=== PATIENT | male | born 1930 | race Caucasian/White ===

== ENCOUNTER 2016-10-01 21:05 | Emergency (ER) | payer MEDICARE ==
--- NOTE | ~2016-10-01 | ER ---
PATIENT'S NAME: DAX ACOSTA [facility] AGE: 85 Y [address] ROOM: [place] [address] LOCATION: [facility] ADMIT DATE: 10/01/2016 ER/Outpatient Report DISCHARGE DATE: 10/01/2016 FAMILY PHYSICIAN: Ezekiel Montenegro MD ATTENDING PHYSICIAN: Patricia Herrera HISTORY OF PRESENT ILLNESS: This is an 85-year-old male who presents today with right forearm redness and tenderness. His family thinks it is from a fall approximately 3 days ago. The patient has baseline unsteady gait. His family says that his legs just give out a lot. They were worried because the swelling has gotten red and warm and the patient is complaining of more pain. No other injuries noted as per family. The patient had another fall tonight where he was wedged between a crib and a bed and the patient did not want to come into the ER, but the patient's family wanted him to get checked out. The patient himself refuses to answer any questions really and says he wants to go home. As per his family, this is his baseline mental status at this time. PAST MEDICAL HISTORY: Includes type 2 diabetes, history of bladder carcinoma with post ileal conduit, hypertension, CHF, AFib, chronic kidney disease, and rheumatic arthritis. PAST SURGICAL HISTORY: Includes appendectomy, hernia repair, excision of skin cancer, and cystoprostatectomy with ileal conduit urinary diversion. SOCIAL HISTORY: No smoking, drinking, or use any drugs. FAMILY HISTORY: Noncontributory. MEDICATIONS: Include: 1. Bupropion 300 mg p.o. daily. 2. Carvedilol 625 mg b.i.d. 3. Tylenol 1 g p.o. as needed. 4. Glimepiride 2 mg b.i.d. 5. Humibid LA 600 mg b.i.d. 6. Levemir 10 units subcu. 7. Prednisone 10 mg daily. 8. Protonix 4 mg daily. 9. Seroquel 25 mg daily. 10. Glucagon 1 mg as needed for hypoglycemia. PATIENT'S NAME: DAX ACOSTA [facility] AGE: 85 Y [address] ROOM: [place] [address] LOCATION: [facility] ADMIT DATE: 10/01/2016 ER/Outpatient Report DISCHARGE DATE: 10/01/2016 FAMILY PHYSICIAN: Ezekiel Montenegro MD ATTENDING PHYSICIAN: Patricia Herrera 11. Methotrexate 2.5 mg dose every 7 days. 12. Albuterol 2.5 mg nebulizer q.4 p.r.n. for shortness of breath. 13. Milk of magnesia p.r.n. constipation. 14. Mylanta 30 mL daily p.r.n. constipation. 15. Insulin sliding scale of NovoLog. REVIEW OF SYSTEMS: Reviewed by me and negative with the exception of those discussed in the HPI. PHYSICAL EXAMINATION: VITAL SIGNS: The patient is 5 feet, 6 inches, weighs 73.4 kilos. Blood pressure was 72/68, heart rate 89, respiratory rate 18, satting 97% on room air, and temp at this time is 36.5. GENERAL: The patient does not appear in any acute distress. He is not very cooperative to exam and he does not answer questions, but he is not altered. He is not actively vomiting or retching. No other complaints at this time. HEENT: His pupils are equal and reactive to light. He has some dried scrapes on his head, but they do not look new, basically, he has no hematoma on his head, he has no scalp tenderness, he has no C-spine tenderness. HEART: Heart rate sounds irregular at this time. LUNGS: His lungs sounds are clear though. MUSCULOSKELETAL: He has no chest wall tenderness and no abdominal tenderness. EXTREMITIES: He has full range of motion of the elbow, but he does have tenderness medial and lateral malleolus and he also has this 2-cm raised red, mildly warm area, just distal to where the elbow is on the forearm, tender on palpation, but there is no fluctuance in it, but mildly warm to touch. EMERGENCY ROOM COURSE: An x-ray was done on my read. I do not see a fracture at all. Discussed with them that I would treat for possible early cellulitis and did tavon a [place] around it. We started him on Keflex and he is to follow up in 2 days for wound check. IMPRESSION: Fall, early cellulitis of the forearm. MD DORIS MEADOWS/modl /[id number] d: 10/02/16 0500 t: 10/02/16 1822, OUTPATIENT REPORT
[~2016-10-01 21:05] MED LIST changes: -ALBUTEROL2.5 MG/31 INH; -AUGMENTIN 875-1 EACH PO; -DOCUSATE SODIU250 MG PO; -PREDNISONE50 MG PO; -PROTONIX40 MG PO; -QUETIAPINE FUMA25 MG; -SEROQUEL25 MG PO; -[UNRECOGNIZED DRUG - OTHER]
== END 2016-10-01 22:19 | disposition disaster alternative care site (69) ==
LOC: GACC 21:05
DX: L03.113 Cellulitis of right upper limb (principal); E11.22 Type 2 diabetes mellitus with diabetic chronic kidney disease; I13.0 Hypertensive heart and chronic kidney disease with heart failure and stage 1 through stage 4 chronic kidney disease, or unspecified chronic kidney disease; I50.9 Heart failure, unspecified; N18.9 Chronic kidney disease, unspecified; I48.91 Unspecified atrial fibrillation; M06.9 Rheumatoid arthritis, unspecified; Z79.899 Other long term (current) drug therapy; Z85.820 Personal history of malignant melanoma of skin; Z85.51 Personal history of malignant neoplasm of bladder; Z90.49 Acquired absence of other specified parts of digestive tract; Z98.890 Other specified postprocedural states; Z79.4 Long term (current) use of insulin

== ENCOUNTER → 2016-10-01 | Outpatient (CLI) | payer MEDICARE ==
[~2016-10-01] MED LIST: ALBUTEROL2.5 MG/31 INH; AMARYL4 MG PO; AUGMENTIN 875-1 EACH PO; COREG6.25 MG PO; DELTASONE5 MG PO; DOCUSATE SODIU250 MG PO; GLUCOPHAGE XR500 M1 PO; PREDNISONE50 MG PO; PROBIOTIC1 EAC1 PO; PROTONIX40 MG PO; QUETIAPINE FUMA25 MG; RHEUMATREX2.5 MG PO; SEROQUEL25 MG PO; WELLBUTRIN XL300 M2 PO; [UNRECOGNIZED DRUG - OTHER]
== END | disposition disaster alternative care site (69) ==
LOC: GAMB 20:44
DX: S59.911A Unspecified injury of right forearm, initial encounter (principal); M79.601 Pain in right arm; Z79.899 Other long term (current) drug therapy
CPT/HCPCS: A0425; A0429

== ENCOUNTER 2016-10-29 14:18 | Inpatient (IN) | payer MEDICARE ==
[~2016-10-29] VITALS: Ht 170.2 cm; Wt 73.5 kg
--- NOTE | ~2016-10-29 | HP ---
PATIENT'S NAME: DAX ACOSTA [facility] AGE: 85 Y [address] ROOM: [place] [address] LOCATION: [facility]ICU ADMIT DATE: 10/29/2016 History & Physical DISCHARGE DATE: FAMILY PHYSICIAN: PHYSICIAN, UNKNOWN ATTENDING PHYSICIAN: Elizabeth MONTENEGRO DATE OF SERVICE: CHIEF COMPLAINT: Septic shock. HISTORY OF PRESENT ILLNESS: The patient is an 85-year-old gentleman with past medical history of bladder cancer status post ileal conduit, hypertension, and rheumatoid arthritis, on methotrexate and chronic prednisone, who presents here with nausea, vomiting, and weakness. The patient has a history of dementia and most of the history is acquired from his . According to his , she reports that around 1:30 a.m. he has been experiencing several nonbloody nausea and vomiting, which continued until 6:30. His nausea and vomiting improved, but however was noted to be weak. reports that she also noticed him to be more confused than usual. The patient was also found down after he had a fall from his bed which led the EMS to be called in to bring the patient here for further evaluation. On initial evaluation, the patient was noted to be hypotensive and systolic blood pressure in the 70s. The patient was given IV fluids 30 mL per kg with some improvement. However, was still noted to be hypotensive. The patient was admitted to our hospital with the same sort of presentation in March 2016, was found to have community-acquired pneumonia with positive blood culture for Klebsiella bacteremia. PAST MEDICAL HISTORY: 1. Diabetes mellitus, type 2. 2. History of bladder cancer. 3. Hypertension. 4. Rheumatoid arthritis. 5. Dementia. PAST SURGICAL HISTORY: 1. Appendectomy. 2. Ileal conduit. 3. Prostatectomy. 4. Hernia repair. 5. Knee surgery. FAMILY HISTORY: Father had Alzheimer. Mother has diabetes mellitus, type 2. The patient is a PATIENT'S NAME: DAX ACOSTA [facility] AGE: 85 Y [address] ROOM: [place] [address] LOCATION: GICU ADMIT DATE: 10/29/2016 History & Physical DISCHARGE DATE: FAMILY PHYSICIAN: PHYSICIAN, UNKNOWN ATTENDING PHYSICIAN: Elizabeth MONTENEGRO former smoker and currently does not smoke. Does not drink and lives with his . They live together with their daughter. MEDICATIONS: Currently being reconciled. REVIEW OF SYSTEMS: Unable to fully evaluate due to patient's poor mentation. PHYSICAL EXAMINATION: VITAL SIGNS: Temperature 98.8, blood pressure 86/52, heart rate 97, and saturating 94% on room air with respiratory rate of 16. GENERAL APPEARANCE: The patient is currently lying on bed in no acute distress. HEENT: Head; normocephalic and atraumatic. Eyes; sclerae nonicteric. Oral cavity; dry oral mucosa. Nose; no nasal discharge. CHEST: Decreased breath sounds in lower lung kurtz bilaterally. HEART: Irregularly irregular. No murmurs, rubs, or gallops. ABDOMEN: Right upper quadrant tenderness. Old surgical scars noted on abdomen. Bowel sounds present. EXTREMITIES: Lower extremity, no edema. SKIN: Warm to touch. MUSCULOSKELETAL: Range of motion intact. Rheumatoid arthritis changes seen on his bilateral hands. 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 Motor and sensory grossly intact. He has poor strength in bilateral lower extremities and that is chronic. LABORATORY DATA: Lactate of 4.2. Sodium of 142, CO2 of 11, creatinine of 1.7, and blood glucose 282. White blood cell count of 12.7, platelets of 289,000, and a hemoglobin of 12.9. CT head, stable [id number]-[id number] senescent changes, no acute findings. Chest x-ray shows internal jugular catheter in place in good position with tip at the mid right atrium. Shows interstitial prominence of both lungs which is suspicious for pneumonitis in both lower lobes. ASSESSMENT AND PLAN: 1. Septic shock. Etiology most likely secondary to bacterial pneumonia. Chest x-ray showed bilateral pneumonitis. White blood cell count of 12.7, lactate of 4.2. The patient had central line placed in the emergency department. The patient has already received 30 mL per kg IV fluids of treatment. The patient currently hypotensive. We will start the patient on Levophed. We will await for blood culture and sputum PATIENT'S NAME: DAX ACOSTA [facility] AGE: 85 Y [address] ROOM: [place] [address] LOCATION: [facility] ADMIT DATE: 10/29/2016 History & Physical DISCHARGE DATE: FAMILY PHYSICIAN: PHYSICIAN, UNKNOWN ATTENDING PHYSICIAN: Elizabeth MONTENEGRO culture. To trend lactate until normalized. On empiric antibiotic of vancomycin and Zosyn. 2. Community-acquired pneumonia. See problem #1. 3. Right upper quadrant pain. The patient has a history of cholelithiasis. I suspect he might also harbor cholecystitis. We will acquire a CT of abdomen and pelvis without contrast to evaluate gallbladder. Also patient has significant history of kidney stones. UA is still pending. We will acquire CT abdomen. We will also evaluate for obstructive uropathy and pyelonephritis. 4. Acute kidney injury secondary to septic shock. To continue IV fluids and daily renal function panel. 5. Rheumatoid arthritis. We will hold methotrexate as this patient is immunocompromised. The patient is on daily prednisone. We will start the patient on stress dose steroids. 6. Hypertension. Holding medication. 7. Dementia, ongoing. 8. History of bladder cancer status post ileal conduit. Continue conduit's care. 9. Severe protein-calorie malnutrition. We will keep the patient n.p.o. for now due to nausea and vomiting. We will start the patient on a diet once stable. We will acquire dietitian consult. Greater than 30 minutes of critical care was spent on the patient's care. We will admit the patient to ICU for IV fluids, antibiotics, and pressor support. Code status on admission was DNR/DNI. However, the family wants everything in treatment for his septic shock. LAN MARIE MD AD/modl /[id number] D: [id number] T: [id number] HISTORY & PHYSICAL
--- NOTE | ~2016-10-29 | ER ---
PATIENT'S NAME: DAX ACOSTA [place] AGE: 85 Y [address] ROOM: [place] [address] LOCATION: [facility] ADMIT DATE: 10/29/2016 ER/Outpatient Report DISCHARGE DATE: FAMILY PHYSICIAN: Ezekiel Montenegro MD ATTENDING PHYSICIAN: Elizabeth WHITMORE Time of arrival: 1418 hours. Time of evaluation: 1418 hours. CHIEF COMPLAINT: Low blood pressure. HISTORY OF PRESENT ILLNESS: The patient is an 85-year-old male who presents to the emergency department today with a chief complaint of low blood pressure. The patient does report that it occurred just prior to arrival. He has had a fall and he has had ongoing balance issues. He does report a dry nonproductive cough. He reports some nausea and vomiting. The patient denies any chest pain. Does have some mild shortness of breath. He does report some subjective fevers. His did note that the patient was more confused than usual. He was found down after he had a fall from his bed. He was found at that time to have systolic blood pressures in the 70s. PAST MEDICAL HISTORY: Bladder cancer, atrial fibrillation, insulin-dependent diabetic, congestive heart failure, hypertension, rheumatoid arthritis, chronic kidney disease. PAST SURGICAL HISTORY: Ileal conduit, appendectomy, prostatectomy, hernia repair, skin cancer removal, knee surgery. SOCIAL HISTORY: The patient denies any tobacco, alcohol, or illicit drug use. He does have a history of former tobacco abuse. ALLERGIES: NO KNOWN DRUG ALLERGIES. MEDICATIONS: Please see list. PRIMARY CARE DOCTOR: Ezekiel Montenegro MD. REVIEW OF SYSTEMS: PATIENT'S NAME: DAX ACOSTA [place] AGE: 85 Y [address] ROOM: [address] [address] LOCATION: [facility] ADMIT DATE: 10/29/2016 ER/Outpatient Report DISCHARGE DATE: FAMILY PHYSICIAN: Ezekiel Montenegro MD ATTENDING PHYSICIAN: Elizabeth WHITMORE All systems are reviewed by myself and are negative with the exception of those discussed in HPI and past medical history. PHYSICAL EXAMINATION: VITAL SIGNS: Weight 71.9 kg, blood pressure 92/53, pulse 108, respiratory rate 19, temperature 98.8, oxygen saturation 96% on room air. GENERAL: The patient is an 85-year-old male, who appears older than stated age, in no acute distress. HEENT: Normocephalic, atraumatic. Pupils are equal, round, and reactive to light. Mucous membranes are dry. Nares are clear bilaterally. NECK: Supple. There is no nuchal rigidity. CARDIOVASCULAR: Irregularly irregular, tachycardic. LUNGS: Diminished at the bases with crackles noted. ABDOMEN: Soft, nontender, nondistended. Positive bowel sounds. MUSCULOSKELETAL: The patient has no bony tenderness to palpation noted. NEUROLOGICAL: He is alert, oriented to person, does know he is in the hospital, does not know the time. Equal parent partner strength bilaterally. He has poor strength in bilateral lower extremities. SKIN: Warm and dry. LABORATORY DATA AND X-RAYS: Labs and x-rays are obtained. An EKG is obtained, is interpreted by myself at 1425 hours, does show atrial fibrillation with a rate of 103, left axis deviation, right bundle-branch block with left anterior fascicular block. There is no ST elevation, ST depression. Nonspecific T-waves. QRS is 147. QTc is normal. Another repeat EKG is obtained at 1646 hours that is essentially unremarkable compared to previous. Previous EKGs are reviewed as well from March 19, 2016, no significant changes noted. A chest x-ray is obtained, does reveal pneumonitis in the right lower lung, questionable on the left. I have discussed this result with the radiologist. CBC: White blood cell count 12.7, otherwise normal, ANC is 11.3. Lactate 4.4. Coags are normal. CMP: Chloride 118, CO2 11, BUN 46, creatinine 1.7, glucose 282. LFTs are normal. Magnesium is 1.7. CK and CK-MB are normal. Troponin 0.054. Free T4 is normal. TSH is normal. ProBNP is 2507. Procalcitonin is 5.15. A CT scan of the brain is obtained. I have discussed the results with the radiologist. It shows atrophy with no acute process. IMPRESSION: 1. Septic shock with sepsis, time 1506 hours. 2. Bilateral pneumonia, community acquired. 3. History of bladder cancer with ileal conduit. 4. Acute kidney injury, likely secondary to septic shock. PATIENT'S NAME: DAX ACOSTA [place] AGE: 85 Y [address] ROOM: [id number] [place], [place] [address] LOCATION: [facility] ADMIT DATE: 10/29/2016 ER/Outpatient Report DISCHARGE DATE: FAMILY PHYSICIAN: Ezekiel Montenegro MD ATTENDING PHYSICIAN: Elizabeth WHITMORE 5. Elevated troponin, likely due to #1. 6. Critical care time 42 minutes. 7. Initial visit. EMERGENCY DEPARTMENT COURSE: The patient was brought back to the examination room, immediately seen upon arrival by myself. IV is established. Laboratory analysis and imaging are obtained as described above. The patient does appear to be in septic shock. His blood pressures with MAPs are less than 65. The patient is given 2500 mL of fluid IV bolus. The patient's weight is 71.9 kg. The patient's blood pressure did improve transiently, however, it did decrease again. Thus I did have a discussion with the patient and his about placement of a central line for both fluid management and the potential need for vasopressors. Risks and benefits are discussed. They do wish to proceed. Both verbal and written consents are obtained. The procedure was performed by myself. CONSENT: The procedure was explained to the patient and family and both verbal and written informed consent were obtained. The patient's right internal jugular was prepped and draped in the usual sterile fashion. Anesthesia 1% lidocaine without epinephrine was used for local infiltration technique. A triple-lumen central line was introduced over wire via the Seldinger technique and it was sutured into place. Good blood flow was noted. There was no evidence of pulsatile flow noted. Good blood flow was noted from all 3 ports. Blood loss was minimal. Chest x-ray was ordered to assess for pneumothorax and catheter placement. Complications none. 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 The patient is started on 4.5 g of Zosyn IV as well as 1250 mg of vancomycin IV. I did discuss the results of the testing with the patient as well as his who is at the bedside. The patient will obviously need admission to the hospital for further evaluation, treatment, and management. The patient and are agreeable. I have discussed the case with Dr. Whitmore, who is on-call for the Hospitalist Service. He has seen and evaluated the patient down here in the emergency department. Please see his dictation. The patient did require a cumulative critical care time of 42 minutes. This time did not include the time for the procedure of the central line placement. This time did include talking with family, talking with multiple consultants, ordering tests, reviewing tests, as well as close monitoring and multiple re- evaluations of the patient with septic shock and hypotension. The patient was in the emergency department for approximately 3-1/2 hours. DISPOSITION: PATIENT'S NAME: DAX ACOSTA [place] AGE: 85 Y [address] ROOM: [address] [address] LOCATION: [facility] ADMIT DATE: 10/29/2016 ER/Outpatient Report DISCHARGE DATE: FAMILY PHYSICIAN: Ezekiel Montenegro MD ATTENDING PHYSICIAN: Elizabeth WHITMORE The patient is admitted under the care of the Hospitalist Service in fair condition. DO MILANA CUELLAR/modl /[id number] d: 10/31/16 0803 t: 10/31/16 1613, OUTPATIENT REPORT
--- NOTE | ~2016-10-29 | DS ---
PATIENT'S NAME: DAX ACOSTA [facility] AGE: 85 Y [address] ROOM: [id number] [place], [place] [address] LOCATION: [facility] ADMIT DATE: 10/29/2016 Discharge Summary DISCHARGE DATE: 11/02/2016 FAMILY PHYSICIAN: Ezekiel Montenegro MD ATTENDING PHYSICIAN: Elizabeth MONTENEGRO PRINCIPAL DIAGNOSES: 1. Acute septic shock. 2. Bilateral pneumonia. 3. Acute kidney injury on chronic kidney disease. 4. Rheumatoid arthritis. 5. Type 2 diabetes mellitus. HOSPITAL COURSE: An 85-year-old gentleman with a past medical history of bladder cancer, status post ileal conduit, hypertension, rheumatoid arthritis, on methotrexate as well as chronic prednisone who presented with nausea, vomiting, and weakness. He also had delirium on top of his dementia. Initial evaluation in the emergency department including chest x-ray, CAT scan, as well as blood work did reveal bilateral pneumonia. He was found to be hypotensive and a central line was placed and he was transferred to the ICU for the pressor agents. He was initially started on broad-spectrum antibiotics including vancomycin, Zosyn, and Levaquin. He was found to have E. coli pneumonia based on the sputum cultures. His antibiotics were deescalated to Rocephin 1 g daily. He was given additional hydrocortisone as a stress dose as well. He recovered well during the course of the hospitalization. JOSH which was present on the admission secondary to septic shock also resolved towards the end of the hospitalization. He was found to have AFib with controlled ventricular rates. Previous medical records review showed that he had that in the past, but it was never brought to the family's attention. I discussed this case with the patient himself as well as the . They told me that they were never told that he had atrial fibrillation. I explained to them regarding there is 4% risk of stroke without any anticoagulation with AFib. The and the patient himself stated that he is 86 years old and does not want any blood thinners at this point and would like to defer this to Dr. Rader who is the primary care physician. DISCHARGE MEDICATIONS: New medications are: 1. Augmentin 875/125 p.o. b.i.d. 2. Prednisone 60 mg p.o. daily for 5 days and then the regular prednisone 10 mg p.o. daily. 3. Bupropion 300 mg p.o. everyday. 4. Carvedilol 6.25 mg p.o. twice daily. 5. Docusate 250 mg p.o. everyday. 6. Methotrexate 17.5 mg p.o. every 7 days. 7. Pantoprazole 40 mg p.o. twice daily. PATIENT'S NAME: DAX ACOSTA [facility] AGE: 85 Y [address] ROOM: [address] [address] LOCATION: GPCU ADMIT DATE: 10/29/2016 Discharge Summary DISCHARGE DATE: 11/02/2016 FAMILY PHYSICIAN: Ezekiel Montenegro MD ATTENDING PHYSICIAN: Elizabeth MONTENEGRO 8. Quetiapine 20 mg p.o. everyday. 9. Glimepiride 4 mg p.o. twice daily. 10. Albuterol 2.5 mg inhalation every 4 hours. 11. Lactobacillus 1 capsule p.o. everyday for 5 days. 12. Metformin 1000 mg p.o. twice daily. ACTIVITY: As tolerated. DIET: Low-sodium diet. FOLLOW UP: Follow up with primary care physician Dr. Montenegro in 1 week. was concerned that we should not be asking for too much physical therapy at this point and she would just like him to be more comfortable. We spent 35 minutes in discharge planning and coordinating care of this patient. I explained the pathogenesis of the pneumonia and what are the possibilities of getting E. coli pneumonia. I explained the possibility that he probably aspirated when he was vomiting. All other questions and concerns were addressed. MD SALBADOR QUEZADA/sean /[id number] d: 11/03/16 0236 t: 11/06/16 1323, DISCHARGE SUMMARY
[~2016-10-29 14:18] MED LIST changes: -ALBUTEROL2.5 MG/31 INH; -AUGMENTIN 875-1 EACH PO; -DOCUSATE SODIU250 MG PO; -PREDNISONE50 MG PO; -PROTONIX40 MG PO; -QUETIAPINE FUMA25 MG; -SEROQUEL25 MG PO; -[UNRECOGNIZED DRUG - OTHER]
[2016-10-29 15:11] LABS: BASOPHIL % 0.2 %; EOSINOPHIL % 0.1 %; HEMATOCRIT 39.1 % (33.0-50.0); HEMOGLOBIN 12.9 g/dL (11.0-16.0); IMMATURE GRANULOCYTE # 0.1 K/uL (0.0-0.3); IMMATURE GRANULOCYTE % 0.5 %; LYMPHOCYTE # 0.6 K/uL (0.8-4.0); LYMPHOCYTE % 4.9 %; MCH 33.2 pg (27.0-34.0); MCV 100.8 fl (83.0-98.0); MONOCYTE # 0.7 K/uL (0.0-1.0); MONOCYTE % 5.1 %; MPV 10.2 fl (9.4-12.4); NEUTROPHIL # (ANC) 11.3 K/uL (1.4-9.0); NEUTROPHIL % 89.2 %; NRBC % 0 /100WBC (0-0.00); PLATELET COUNT 289 K/uL (150-450); RDW-CV 15.9 % (11.9-14.6); WBC 12.7 K/uL (4.0-11.0)
[2016-10-29 15:16] LABS: RBC 3.88 M/uL (3.50-5.50)
[2016-10-29 15:20] LABS: INR - (THERAPEUTIC) 1.02 (0.92-1.07); PROTIME 10.7 SECONDS (9.8-11.4); PTT 24 SECONDS (25-32)
[2016-10-29 15:38] LABS: ALBUMIN 3.2 gm/dL (3.5-5.0); CALCIUM 9.7 mg/dL (8.5-10.5); CREATININE 1.7 mg/dL (0.6-1.3); MAGNESIUM 1.7 mg/dL (1.8-2.6); POTASSIUM 4.5 mMol/L (3.7-5.1); TOTAL BILIRUBIN 0.8 mg/dL (0.0-1.5); TOTAL PROTEIN 6.9 g/dL (6.0-8.4)
[2016-10-29 15:58] LABS: ANION GAP 20.5 (10.0-19.0)
[2016-10-29] MEDS ORDERED: QUETIAPINE FUMA25 MG (18:36)
[2016-10-29] MEDS ORDERED: PROTONIX40 MG PO (18:36)
[2016-10-29] MEDS ORDERED: DOCUSATE SODIU250 MG PO (18:37)
[2016-10-29] MEDS ORDERED: SEROQUEL25 MG PO (18:37)
[2016-10-29 18:54] LABS: PCO2 27 mmHg (35-45); PO2 97 mmHg (80-90)
[2016-10-29 22:22] LABS: BILIRUBIN URINE NEGATIVE (NEGATIVE); BLOOD URINE 50 /UL (NEGATIVE); COLOR URINE YELLOW (YELLOW); GLUCOSE URINE NEGATIVE (NEGATIVE); KETONE URINE 5 mg/dL (NEGATIVE); LEUKOCYTES URINE 500 /UL (NEGATIVE); NITRITE URINE NEGATIVE (NEGATIVE); PH URINE 6.5 (4.0-8.0); PROTEIN URINE 30 mg/dL (NEGATIVE); TURBIDITY URINE CLEAR (CLEAR); UROBILINOGEN URINE 1 mg/dL (NORMAL)
[2016-10-29 22:34] LABS: RBC URINE 0-2 #/HPF (NEGATIVE)
[2016-10-29 22:35] LABS: BACTERIA URINE MANY (NEGATIVE); MUCUS URINE 2+ (NEGATIVE)
[2016-10-29 22:35] LABS: BICARBONATE 11.9 mmol/L (18.0-23.0); PCO2 26 mmHg (35-45); PO2 91 mmHg (80-90)
[2016-10-29 22:36] LABS: AMORPHOUS URINE 2+ (NEGATIVE); GRANULAR CASTS URINE 0-2 #/LPF (NEGATIVE); HYALINE CAST URINE 0-2 #/LPF (NEGATIVE)
[2016-10-30 05:29] LABS: HEMOGLOBIN 9.8 g/dL (11.0-16.0); MCV 100.3 fl (83.0-98.0); MPV 9.8 fl (9.4-12.4); RBC 2.97 M/uL (3.50-5.50); WBC 7.6 K/uL (4.0-11.0)
[2016-10-30 05:30] LABS: HEMATOCRIT 29.8 % (33.0-50.0); MCHC 32.9 gm/dL (32.0-36.5); PLATELET COUNT 193 K/uL (150-450)
[2016-10-30 05:50] LABS: ALBUMIN 2.3 gm/dL (3.5-5.0); CALCIUM 8.3 mg/dL (8.5-10.5); CREATININE 1.3 mg/dL (0.6-1.3); TOTAL PROTEIN 5.4 g/dL (6.0-8.4)
[2016-10-30 05:51] LABS: TOTAL BILIRUBIN 0.5 mg/dL (0.0-1.5)
[2016-10-30 06:05] LABS: ABSOLUTE NEUTROPHIL CT (ANC) 7.1 K/uL (1.4-9.0); BANDED NEUTROPHIL # 0.8 K/uL (0.0-0.1); BANDED NEUTROPHILS % 11 %; LYMPHOCYTE # 0.4 K/uL (0.8-4.0); LYMPHOCYTE % 5 %; MONOCYTE # 0.1 K/uL (0.0-1.0); SEGMENTED NEUTROPHIL # 6.2 K/uL (1.4-9.0); SEGMENTED NEUTROPHIL % 82 %
--- NOTE | 2016-10-30 06:45 | NUR ---
PT ALERT, DISORIENTED TO PLACE/TIME. CALM/COOPERATIVE. MOVES ALL EXTREMITIES WELL WITH FAIR STRENGTH. FOLLOWS COMMANDS. ARRIVED ON 4LNC, WEAN TO RA BY 0300. LUNG SOUNDS VARY FROM COARSE TO CLEAR/DIM AND CLEARS WITH COUGH. COUGH IS NON-PRODUCTIVE AND CONGESTED. NO SAMPLE AVAILABLE TO SEND FOR CULTURE. AFIB WITH RATE IN 100S UPON ARRIVAL, CONVERT TO SR WITH SIGNIFICANT 1ST DEGREE AV BLOCK SOON AFTER STARTING LEVOPHED. LEVOPHED STARTED SOON AFTER ARRIVAL, WEANED OFF BY 0500. CURRENTLY SBP IN 110S, MAPS IN 80S. AFEBRILE. REMAINS NPO, TOLERATING SIPS OF WATER WELL, BEDSIDE SWALLOW EVAL COMPLETED AND PATIENT PASSED. NO BM THIS SHIFT. UOP 1220 FROM ILEAL CONDUIT. MUCOUS THREADS PRESETN, COLOR IMPROVING TO YELLOW WITH LESS CLOUDINESS SHIFT PROGRESSED. SEE FLOWSHEETS FOR SKIN ASSESSMENT. ROSA ROMERO RN
--- NOTE | 2016-10-30 12:01 | NUR ---
A-CONSULT RECEIVED FOR NUTRITION CONSULT PT ADMITTED FOR N/V, WEAKNESS. HAD N/V THROUGHOUT THE NIGHT RN EMERGENCY ROOM; N/V IMPROVED, BUT PT WAS NOTED TO HAVE SOME WEAKNESS & INCREASED CONFUSION. MED HX: BLADDER CA S/P ILEO CONDUIT. DEMENTIA. SPOKE W/PT AND PT'S . PT'S IS ABLE TO ANSWER QUESTIONS PT STARTED WORKING WITH PT PT HAS HAD SOME WT LOSS SINCE APRIL; APPROX 8 POUNDS. PT HAS A GOOD BREAKFAST, BUT THEN SLEEPS THROUGH LUNCH. HE DEOS EAT A GOOD DINNER. PT DOES NOT TAKE SUPPLEMENTS AT HOME; HE DOES NOT LIKE THEM AND REFUSES TO DRINK THEM. PT DOES SAY NO WHEN DISCUSSING SUPPLEMENTS. PT USUALLY HAS EGGS OF SOME SORT IN THE AM, TOAST WITH PB AND JELLY ON IT, ORANGE JUICE AND 2% MILK. PT REALLY LIKES MILK, PER PT'S 'S REPORT. HT: 67 IN. CBW: 73.1 KG. WT FROM 02/2016 ADMIT SHOWS A 3.3% WT LOSS. BMI: 25.2. PER MD REPORT, PT HAS SEVERE PRO-BALDEMAR MALNUTRITION. LABS: NA 147, K+ 4.0, GLU 290, BUN 35, HAZARDOUS SUBSTANCES SCIENTIST 1.3, ALB 2.3 MEDS: LEVAQUIN, SOLUCORTEF, NOVOLOG (MILD SS), LEVEMIR, ROCEPHIN, ZOFRAN, VANCOMYCIN DIET RX: CONSISTENT CARB. PT HAD A BEDSIDE SWALLOW EVAL AND PASSED. WAITING TO RECEIVE BRK DURING OUR VISIT. EST NUTR NEEDS: [id number] KCALS (28-32 GM/KG) 73-88 GM PROTEIN (1.0-1.2 GM/KG) 1 ML FLUID/KCAL D-AT NUTRITION RISK W/INADEQUATE ORAL INTAKE R/T DECREASED APPETITE R/T ALTERED MENTAL STATUS AEB WT LOSS RN EMERGENCY ROOM, SLEEPING MOST OF THE DAY, PT'S REPORT, DX. I-1)RECOMMEND MAKING SURE PT IS AWAKE AT LUNCH TIME, SO HE CAN EAT HIS MEAL 2)PT REFUSES SUPPLEMENTS 3)WILL ENTER HIS USUAL BRK SO THAT HE WILL GET WHAT HE LIKES, PT'S AGREEABLE TO THIS. M/E-GOAL: PO INTAKE >/=50% BY NEXT F/U 1)F/U PO INTAKE, WT, AND POC IN 3-5 DAYS 2)ASSIST NEEDED
--- NOTE | 2016-10-30 17:14 | NUR ---
Significant Event:Pt up to chair, worked with PT and ambulated in amato with walker, forgetfulm oriented to person, in SR throughout shift, remains off levophed all shift, vanco and zosyn d/c'd and rocephin started, on RA with productive cough, denies pain, started on diabetic diet with fair appetite, illeoconduit with adequate UOP = 700mls Follow up:Pt should hopefully be able to transfer to PCU status tomorrow
[2016-10-31 06:03] LABS: BLOOD UREA NITROGEN 29 mg/dL (6-24); CALCIUM 8.7 mg/dL (8.5-10.5); CREATININE 1.1 mg/dL (0.6-1.3); ESTIMATED GFR (MDRD EQUATION) > 60; POTASSIUM 3.7 mMol/L (3.7-5.1); SODIUM 145 mMol/L (135-145)
[2016-10-31 06:07] LABS: ANION GAP 12.7 (10.0-19.0); CHLORIDE 120 mMol/L (96-110); CO2 16 mMol/L (22-32)
[2016-10-31 06:22] LABS: HEMATOCRIT 27.9 % (33.0-50.0); HEMOGLOBIN 9.1 g/dL (11.0-16.0); MCH 33.1 pg (27.0-34.0); MCHC 32.6 gm/dL (32.0-36.5); MCV 101.5 fl (83.0-98.0); MPV 10.2 fl (9.4-12.4); PLATELET COUNT 189 K/uL (150-450); RBC 2.75 M/uL (3.50-5.50); RDW-CV 16.6 % (11.9-14.6)
--- NOTE | 2016-10-31 06:42 | NUR ---
PT REMAINS OFF LEVO AND ON RA. CONTINUES TO HAVE CONGESTED COUGH. RESTING QUIETLY THIS SHIFT. AMBULATED IN ROOM WITH 1PA. BM X2 THIS SHIFT. UOP APPROPRIATE. APPETITE FAIR. ROSA ROMERO RN
[2016-10-31 07:00] LABS: ABSOLUTE NEUTROPHIL CT (ANC) 5.2 K/uL (1.4-9.0); LYMPHOCYTE # 0.4 K/uL (0.8-4.0); LYMPHOCYTE % 7 %; MONOCYTE # 0.4 K/uL (0.0-1.0); SEGMENTED NEUTROPHIL # 5.2 K/uL (1.4-9.0); SEGMENTED NEUTROPHIL % 87 %
--- NOTE | 2016-10-31 10:03 | NUR ---
Significant Event: Patient alert and oriented to person only. Confused on time and place. Follows all directions and reorients, but forgets pretty easily. Pleasantly confused. RA. VSS. NO c/o pain/discomfort. UP ambulating with physical therapy today, OT had him brushing his own teeth. Illeoconduit draining to a thomas catheter bag. Stoma looks healthy. Follow up:
--- NOTE | 2016-10-31 10:11 | NUR ---
PT SCREENED D/T MST. NUTRITION CONSULT RECEIVED YESTERDAY, RD DID FULL ASSESSMENT, PLEASE REFER TO NOTE ON 10/30. PT HAS HISTORY OF DEMENTIA. RD OBTAINED INFORMATION FROM PT'S . 8# WT LOSS SINCE APRIL. HAD 25% OF BREAKFAST THIS AM PER RECORD. DISCUSSED PT'S LIKES AND DISLIKES WITH . 2% MILK TID W/ MEALS. WILL FOLLOW.
--- NOTE | 2016-10-31 16:40 | NUR ---
Significant Event: ALERT. DISORIENTED TO TIME AND DATE. KNOWS SELF AND SURROUNDINGS. PALE/PALLOR, SKIN COOL. AFEBRILE. HAS DIFFICULTY SWOLLING MEDS. TAKEN IN APPLESAUCE MUCH BETTER. SATS 96% ON ROOM, NO RESP. DISTRESS NOTED. GOOD URINE OUTPUT VIA ILEOCONDUET. NEW WAFER PER WOC THIS AFTERNOON. HR IN 80'S, SR. PT/OT/ST ALL SEE PATIENT. UP CHAIR, NEEDS CHAIR AND BED ALARM ON AT ALL TIMES. Follow up: CONT. PLAN OF CARES.
--- NOTE | 2016-11-01 05:11 | NUR ---
Significant Event: Patient alert. Oriented to person, sometimes to place. Disoriented to time. Reorients well. SBP 128-159. HR 60s-80s. On RA. No compliants of pain this shift. Patient's was called and came in after patient began getting upset over who is "paying for all this." made patient comfortable and patient has been calm since. Up to bathroom with 1 assist, walker, and gaitbelt. Illeoconduit draining to thomas catheter bag. Good uop. Bed alarm on at all times. Calm and cooperative with all cares. Follow up: Will continue to monitor per plan of care.
[2016-11-01 06:11] LABS: BLOOD UREA NITROGEN 30 mg/dL (6-24); CO2 18 mMol/L (22-32); ESTIMATED GFR (MDRD EQUATION) > 60; POTASSIUM 3.3 mMol/L (3.7-5.1)
[2016-11-01 06:12] LABS: ANION GAP 11.3 (10.0-19.0); CHLORIDE 121 mMol/L (96-110); SODIUM 147 mMol/L (135-145)
[2016-11-01 06:20] LABS: HEMATOCRIT 27.9 % (33.0-50.0); HEMOGLOBIN 9.1 g/dL (11.0-16.0); MCH 32.9 pg (27.0-34.0); MCHC 32.6 gm/dL (32.0-36.5); MCV 100.7 fl (83.0-98.0); MPV 10.3 fl (9.4-12.4); PLATELET COUNT 197 K/uL (150-450); RBC 2.77 M/uL (3.50-5.50); RDW-CV 16.3 % (11.9-14.6); WBC 6.3 K/uL (4.0-11.0)
[2016-11-01 07:03] LABS: ABSOLUTE NEUTROPHIL CT (ANC) 5.7 K/uL (1.4-9.0); BANDED NEUTROPHIL # 0.1 K/uL (0.0-0.1); BANDED NEUTROPHILS % 2 %; LYMPHOCYTE # 0.4 K/uL (0.8-4.0); LYMPHOCYTE % 7 %; MONOCYTE # 0.1 K/uL (0.0-1.0); SEGMENTED NEUTROPHIL # 5.5 K/uL (1.4-9.0); SEGMENTED NEUTROPHIL % 88 %
--- NOTE | 2016-11-01 12:11 | NUR ---
Introduced self and role of care management to on the phone, she just left for home. She states they live with her daughter and son in law and they help her out with his dementia. She states the biggest problem is his indepnedency and some falls. They have contacted AA on have a list of private caregivers if needed and she has been up to [facility] as well and spoke with them regarding respite care at times. I discussed dc plans and the plan is home and decline the need for hhc or usp at this time. Will continue to follow and assist as needed.
--- NOTE | 2016-11-01 16:14 | NUR ---
Significant Event: ALERT. STATES "I KNOW ITS DAY OR NIGHT" THAT SHOULD BE GOOD ENOUGH. ORIENTED TO SELF AND KNOWS HE'S IN HOSPITAL. COOPERATIVE WITH CARES. VISITED TODAY. APPETITE ONLY FAIR. TAKING MEDS WHOLE IN APPLESAUCE WITHOUT DIFFICULTY. C/O COUGHING A LOT TODAY. ICE CHIPS AT TIMES. K+ 3.3, GIVEN IV AND ORAL KCL. LASIX IV X 1. PT. AMBULATING WITH 1 ASSIST INTO HALLWAYS, GAIT STEADY. SLIGHT SHORTNESS OF BREATH. Follow up: CHEST X-RAY IN A.M. AND LABS. NURSE DRAW. POSSIBLE DISM. TO HOME TOMORROW.
[2016-11-02 04:55] LABS: ANION GAP 12.8 (10.0-19.0); BLOOD UREA NITROGEN 31 mg/dL (6-24); CHLORIDE 115 mMol/L (96-110); CO2 20 mMol/L (22-32); CREATININE 1.1 mg/dL (0.6-1.3); ESTIMATED GFR (MDRD EQUATION) > 60; POTASSIUM 3.8 mMol/L (3.7-5.1); SODIUM 144 mMol/L (135-145)
[2016-11-02 05:00] LABS: BASOPHIL % 0.2 %; EOSINOPHIL # 0.1 K/uL (0.0-0.5); EOSINOPHIL % 2.4 %; HEMATOCRIT 31.1 % (33.0-50.0); HEMOGLOBIN 10.4 g/dL (11.0-16.0); IMMATURE GRANULOCYTE % 0.7 %; LYMPHOCYTE # 0.6 K/uL (0.8-4.0); LYMPHOCYTE % 10.4 %; MCH 33.5 pg (27.0-34.0); MCHC 33.4 gm/dL (32.0-36.5); MCV 100.3 fl (83.0-98.0); MONOCYTE # 0.1 K/uL (0.0-1.0); MONOCYTE % 1.9 %; MPV 10.5 fl (9.4-12.4); NEUTROPHIL % 84.4 %; NRBC % 0 /100WBC (0-0.00); PLATELET COUNT 228 K/uL (150-450); RDW-CV 16.4 % (11.9-14.6); WBC 5.9 K/uL (4.0-11.0)
--- NOTE | 2016-11-02 05:26 | NUR ---
Significant Event: Pt A&Ox2. VS stable, remains on RA. No c/o pain. ADA diet, accuchecks ACHS, mild scale. Up x1 assist w/gb & FWW. Ileoconduit had 1600 out overnight. Pt does have a weak, wet cough, but no sputum. PRN neb tx. PIV in LFA/RFA; TL RIJ, all SL. Pills are taken whole in applesauce. Follow up: CXR in AM. Possible d/c home today.
[2016-11-02] MEDS ORDERED: ALBUTEROL2.5 MG/31 INH (14:45)
[2016-11-02] MEDS ORDERED: AUGMENTIN 875-1 EACH PO (14:48)
[2016-11-02] MEDS ORDERED: PREDNISONE50 MG PO (14:54)
[2016-11-02] MEDS ORDERED: [UNRECOGNIZED DRUG - OTHER] (14:58)
--- NOTE | 2016-11-02 19:00 | NUR ---
D:Patient discharged at 1645, to return home with . Discharged per wheelchair. Have personal belongings and discharge instutions. able to understand instructions, has no questions, and has prescriptions.
== END 2016-11-02 16:50 | disposition disaster alternative care site (69) | DRG 871 ==
LOC: GACC 14:18 → GICU 15:27 → GNTU 15:27 → GICU 16:46 → GPCU 10-31 13:09
PROVIDERS: Emergency Medicine; Internal Medicine; ADMIT Internal Medicine
PROC: 02H633Z Insertion of Infusion Device into Right Atrium, Percutaneous Approach (ICD-10-PCS; principal; 2016-10-29)
DX: A41.9 Sepsis, unspecified organism (principal); R65.21 Severe sepsis with septic shock; E43 Unspecified severe protein-calorie malnutrition; G93.41 Metabolic encephalopathy; I50.33 Acute on chronic diastolic (congestive) heart failure; Z66 Do not resuscitate; J15.5 Pneumonia due to Escherichia coli; N17.9 Acute kidney failure, unspecified; E87.2 Acidosis; I13.0 Hypertensive heart and chronic kidney disease with heart failure and stage 1 through stage 4 chronic kidney disease, or unspecified chronic kidney disease; E87.1 Hypo-osmolality and hyponatremia; M06.9 Rheumatoid arthritis, unspecified; F03.90 Unspecified dementia, unspecified severity, without behavioral disturbance, psychotic disturbance, mood disturbance, and anxiety; N18.3 Chronic kidney disease, stage 3 (moderate); I48.91 Unspecified atrial fibrillation; E11.65 Type 2 diabetes mellitus with hyperglycemia; E11.22 Type 2 diabetes mellitus with diabetic chronic kidney disease; Z85.51 Personal history of malignant neoplasm of bladder; Z87.891 Personal history of nicotine dependence; Z68.25 Body mass index [BMI] 25.0-25.9, adult; Z79.4 Long term (current) use of insulin
CPT/HCPCS: J0696; J1644; J1720; J1940; J1956; J2543; J3370; J3480; J7030; J7040; J7050; J7060; J7512; J8610

== ENCOUNTER → 2016-10-29 | Outpatient (CLI) | payer MEDICARE ==
[~2016-10-29] MED LIST changes: +ALBUTEROL2.5 MG/31 INH; +AUGMENTIN 875-1 EACH PO; +DOCUSATE SODIU250 MG PO; +PREDNISONE50 MG PO; +PROTONIX40 MG PO; +QUETIAPINE FUMA25 MG; +SEROQUEL25 MG PO; +[UNRECOGNIZED DRUG - OTHER]
== END | disposition disaster alternative care site (69) ==
LOC: GAMB 13:44
DX: R53.1 Weakness (principal); R11.11 Vomiting without nausea; Z79.84 Long term (current) use of oral hypoglycemic drugs; Z79.52 Long term (current) use of systemic steroids; Z79.899 Other long term (current) drug therapy; W19.XXXA Unspecified fall, initial encounter
CPT/HCPCS: A0422; A0425; A0427; J7030